=== PATIENT | male | born 1950 | race Caucasian/White ===

== ENCOUNTER 2018-09-21 13:08 | Emergency (ER) | payer BC, MEDICARE, OTHER ==
[2018-09-21 13:39] VITALS: BP 129/81
--- NOTE | 2018-09-21 14:41 | UC ---
Lower Extremity/Ankle HPI - HPI Summary HPI Summary: 67 year old male with PMH + for HTN, presents with left ankle injury after full log, roughly weighing 100lbs fell onto ankle directly, rolled log off with immedate ankle pain. Patient was able to ambulate after, however had increased pain and swelling. Pain located medially. No prior injuries to right leg, h/o fracture to left leg in past. no numbness, tingling. Pain at rest mild, moderate with movements/ ambulation - History of Current Complaint Chief Complaint: UCLowerExtremity Stated Complaint: RT ANKLE/LEG Time Seen by Provider: 09/21/18 13:52 Hx Obtained From: Patient Onset/Duration: Sudden Onset, Lasting Hours - 9AM Severity Initially: Severe Severity Currently: Moderate Pain Intensity: 6 Pain Scale Used: 0-10 Numeric Aggravating Factor(s): Standing, Ambulation Alleviating Factor(s): Rest Able to Bear Weight: Yes - Allergies/Home Medications Allergies/Adverse Reactions: Allergies Allergy/AdvReac Type Severity Reaction Status Date / Time No Known Allergies Allergy Verified 09/21/18 13:39 Home Medications: Home Medications Amlodipine Besylate [Norvasc] 5 mg PO DAILY 09/21/18 [History Confirmed 09/21/18 ] Ibuprofen 400 mg PO ONCE PRN 09/21/18 [History Confirmed 09/21/18] Lisinopril 10 mg PO DAILY 09/21/18 [History Confirmed 09/21/18] PMH/Surg Hx/FS Hx/Imm Hx Previously Healthy: Yes Cardiovascular History: Hypertension - Surgical History Surgical History: None - Social History Alcohol Use: Rare Substance Use Type: None Smoking Status (MU): Never Smoked Tobacco Review of Systems All Other Systems Reviewed And Are Negative: Yes Skin: Positive: Bruising Musculoskeletal: Positive: Arthralgia, Decreased ROM, Edema, Myalgia Is Patient Immunocompromised?: No Physical Exam Triage Information Reviewed: Yes Appearance: Well-Appearing, No Pain Distress, Well-Nourished Vital Signs: Initial Vital Signs Temp 98.6 F 09/21/18 13:28 Pulse 80 09/21/18 13:28 Resp 18 09/21/18 13:28 BP 129/81 09/21/18 13:28 Pulse Ox 97 09/21/18 13:28 Vital Signs Reviewed: Yes Eyes: Positive: Conjunctiva Clear ENT: Positive: Hearing grossly normal Musculoskeletal: Positive: ROM Intact - PROM intact, pain with inversion against resistence, mild pain with plantarflexion., Strength Limited @ - decreased abduction due to pain. full DF/PF, Edema @ - RIGHT leg- lat/ medial mal moderate swelling, no ecchymosis seen. Neurological Exam: Normal Neurological: Positive: Other: - SITLT distal to R ankle Psychological Exam: Normal Skin Exam: Normal Skin: Positive: Other - Skin intact, no breakdown noted. Lower Extremity Course/Dx - Course Course Of Treatment: radiograph- + for fib fracture, mortise widening. Discussed with Ortho, Dr Price, will splint & follow up RAJINDER Falcon. NSAIDS, MYRA Discussed compartment syndrome and s/s of & to go to ER with any symptoms. Pt refused crutches, will get his own, stressed NWB - Differential Dx/Diagnosis Differential Diagnosis/HQI/PQRI: Contusion, Sprain, Tendonitis Provider Diagnosis: Right fibular fracture Discharge - Sign-Out/Discharge Documenting (check all that apply): Patient Departure All imaging exams completed and their final reports reviewed: Yes - Discharge Plan Condition: Fair Disposition: HOME Prescriptions: HYDROcodone/ACETAMIN 5-325 MG* [Central 5-325 TAB*] 1 tab PO Q6H PRN #5 tab MDD 4 PRN Reason: Pain Patient Education Materials: Ankle Fracture (ED), Splint Care (ED) Referrals: Brian Lou MD [Medical Doctor] - (Follow up with orthopedics early next week for re-evaluation/ possible surgery ) Sydni Muhammad MD [Primary Care Provider] - Vannessa Rosa MD [Medical Doctor] - (Follow up with orthopedics early next week for re-evaluation/ possible surgery Your case was discussed with Dr. Rosa at [facility] today. She will be able to see you on marichuy. ) Additional Instructions: - non-weight bearing- Do NOT use your right leg to walk on, put down any weight on until follow up with orthopedics - Ice leg as much as possible to decrease swelling - Do not remove splint or get splint wet - Motrin/ Tylenol as needed for pain, Central as needed for severe pain - Call [facility] associated with any questions/ concerns [phone] - crutches for ambulation - Billing Disposition and Condition Condition: FAIR Disposition: Home
== END 2018-09-21 15:50 | disposition home or self-care (01) ==
LOC: UCEAST 13:08
DX: S82.831A Other fracture of upper and lower end of right fibula, initial encounter for closed fracture (principal); W22.8XXA Striking against or struck by other objects, initial encounter; Y92.9 Unspecified place or not applicable; I10 Essential (primary) hypertension
CPT/HCPCS: 99202; G0463

== ENCOUNTER 2018-10-01 12:35 | Day surgery (SDC) | payer MEDICARE ==
[~2018-10-01 12:35] MED LIST: Buffered Lidocaine 1% SYRIN* 1 ML/SYRINGE INTRADERM ONE; Lactated Ringers 1000 ML Bag* 1,000 ML IV SCH
[2018-10-01] MEDS ORDERED: ceFAZolin 2 GM PREMIX in ORs 2 GM/50 ML BAG ONE (13:31)
[2018-10-01] MEDS ORDERED: Buffered Lidocaine 1% SYRIN* 1 ML/SYRINGE INTRADERM ONE (13:31)
[2018-10-01] MEDS ORDERED: Propofol* 10 MG/ML 20 ML BTL ONE (16:37)
[2018-10-01] MEDS ORDERED: Lidocaine 2% PF * 5 ML VIAL ONE (16:37)
[2018-10-01] MEDS ORDERED: Rocuronium* 10 MG/ML VIAL ONE (16:38)
[2018-10-01] MEDS ORDERED: fentaNYL* 50 MCG/ML 2 ML VIAL (100 MCG VIAL) ONE (16:38)
[2018-10-01] MEDS ORDERED: Midazolam* 1 MG/ML 2 ML VIAL (2 MG) ONE (16:38)
[2018-10-01] MEDS ORDERED: Ropivacaine 0.2% * 2 MG/ML VIAL ONE (17:01)
[2018-10-01] MEDS ORDERED: Dexamethasone IV* 4 MG/ML 1 ML (4 MG) ONE (17:23)
[2018-10-01] MEDS ORDERED: Metoclopramide IV* 5 MG/ML 2 ML VIAL ONE (17:23)
[2018-10-01] MEDS ORDERED: Ondansetron INJ* 2 MG/ML VIAL ONE (17:23)
[2018-10-01] MEDS ORDERED: Ketorolac INJ* 30 MG/ML 1 ML VIAL ONE (17:23)
[2018-10-01] MEDS ORDERED: Acetaminophen TAB* 325 MG PO PRN (17:43)
[2018-10-01] MEDS ORDERED: Naloxone* 0.4 MG/ML 1 ML VIAL IV PRN (17:43)
[2018-10-01] MEDS ORDERED: DiMENhydriNATE IV* 50 MG/ML VIAL IV PUSH PRN (17:43)
[2018-10-01] MEDS ORDERED: EPHEDrine (Pressors)* 50 MG/ML VIAL ONE (17:53)
[2018-10-01] MEDS ORDERED: Sugammadex * 200 MG/2 ML VIAL IV PUSH ONE (18:33)
[2018-10-01] MEDS ORDERED: HYDROmorphone INJ1* 1 MG/ML SYRINGE ONE (19:16)
[2018-10-01] MEDS ORDERED: oxyCODONE TAB* 5 MG TAB ONE (19:16)
[2018-10-01] MEDS: HYDROmorphone INJ1* 1 MG/ML SYRINGE IV PRN ×5 (19:20→19:46)
[2018-10-01] MEDS: oxyCODONE TAB* 5 MG TAB PO PRN ×2 (19:20→19:21)
[2018-10-01 21:15] VITALS: BP 110/66
--- NOTE | 2018-10-02 02:05 | OP ---
CC: PCP, Sydni Muhammad MD * DATE OF OPERATION: 10/01/18 - [facility] DATE OF : 54 SURGEON: Vannessa Rosa MD HOGSHEAD COOPER: GABBY Brice. An anesthesiology physician assistant was needed for the entirety of the case to help with positioning, retraction, and was utilized throughout all portions of the case. ANESTHESIOLOGIST: Dr. Urrutia. ANESTHESIA: General. PRE-OP DIAGNOSIS: Right distal fibula fracture with possible syndesmosis injury. POST-OP DIAGNOSIS: Lateral fibular fracture with syndesmosis disruption. OPERATIVE PROCEDURES: 1. Right open reduction and internal fixation of right distal fibula. 2. Stress views of the syndesmosis. 3. ORIF of syndesmosis. IMPLANTS: Arthrex Titanium system with a TightRope. COMPLICATIONS: None. ESTIMATED BLOOD LOSS: Minimal. TOURNIQUET TIME: 74 minutes at 250 mmHg. DISPOSITION: Stable. INDICATIONS: Campbell Taveras is a 67-year-old male who states that a 200-pound log fell on to his foot on 09/21/18. He was diagnosed with an ankle fracture with some syndesmosis widening. After significant discussion of risks and benefits of surgical versus nonoperative treatment, he has elected to proceed with surgical treatment. Risks include, but are not limited to bleeding, infection, damage to nerves, vessels, surrounding structures, wound nonhealing, persistent pain, need for further surgery, scarring, stiffness, incomplete relief of symptoms, risks of anesthesia, risk of DVT, need for surgery, risk of arthritis, skin healing issues, wound healing issues, risk of blood clots. DESCRIPTION OF PROCEDURE: The patient was greeted in the preoperative area by the attending surgeon. Correct extremity was marked and consent was confirmed. The patient was brought back to the operating suite where he was placed in a supine position on the operating room table and then was appropriately positioned in the bed. A bone foam was placed on the leg and unsterile tourniquet was placed high on the proximal thigh. The right ankle was then prepped and draped in usual sterile fashion beginning with chlorhexidine soap, scrub, and alcohol wipe, and a final prep of ChloraPrep. After appropriate surgical pause indicating side, site, procedure administration of antibiotics, the limb was exsanguinated and tourniquet was inflated to 250 mmHg. A 15 blade was used to make an incision encompassing the distal aspect of the fibula. The soft tissue were dissected to expose the fascia. The fracture was identified, then the edge of the fracture was then debrided back using a 15 blade. The elevator was used to remove the periosteum. The fracture was gapped open and had blood clot and the clot were removed using the rongeur as well as a curette. The wound was then irrigated. At this point, provisional reduction was then done and appeared to be near anatomic. This was secured with reduction clamps, it was checked under the x- ray, confirmed that it was appropriately line up. After this, a lag screw was then placed anterior proximal to inferior distal. This helped to hold and provisionally secure the fixation. Then, a one-third tubular titanium plate was then chosen, a 7-hole plate. The appropriate length screws were then placed proximally and distally with room to pass the syndesmosis. The lag screw had to be reapproximated to allow for syndesmosis fixation without any interference. X-rays were checked and confirmed. At this point the syndesmosis was stressed and there was widening evident. The decision was made to fix this with a tight rope. A wide reduction clamp was then used to free the syndesmosis and with the ankle dorsiflexed, a TightRope drill was then drilled through all 4 cortices and parallel to the joint line and directed 30 degrees anterior. The Arthrex TightRope device was then placed under fluoroscopic visualization and this TightRope failed, therefore a second one was placed, the button still remains medially, but the remainder of the suture and everything else were removed. A second one was placed and this was then cinched down appropriately to close down the syndesmosis. Once it was tightened down, it was then tied with few knots. Final images were obtained with stress views done on the syndesmosis and found to be appropriately reduced. The wounds was copiously irrigated with sterile saline. The fascia was closed with 2-0 Vicryl and skin was closed with 3-0 Monocryl and 3-0 nylon. The wound was injected with 0.2% of ropivacaine. Sterile dressings were applied as well as well-padded plaster splint. The tourniquet was deflated and toes were pink and well perfused. The patient was then awoken from anesthesia and brought from the PACU in stable condition. POSTOPERATIVE PLAN: He will be nonweightbearing. He will be discharged on pain medications. DVT prophylaxis was considered, but deferred due to no previous personal or family history. I will see the patient back in 10 to 14 days with repeat x-rays and hopefully transition to a boot. [id number]/[facility] #: [id number] MTDD
== END 2018-10-01 21:15 | disposition home or self-care (01) ==
LOC: OR 12:35
PROVIDERS: ATTEND Orthopaedic Surgery
DX: S82.61XA Displaced fracture of lateral malleolus of right fibula, initial encounter for closed fracture (principal); W22.8XXA Striking against or struck by other objects, initial encounter; Y93.89 Activity, other specified; Y92.9 Unspecified place or not applicable; I10 Essential (primary) hypertension
CPT/HCPCS: 76000; A9270-GY; C1713; J0690; J1100; J1170; J1885; J2250; J2405; J2704; J2765; J2795; J3010

== ENCOUNTER 2018-10-23 12:40 | Inpatient (IN) | payer MEDICARE ==
[2018-10-23] MEDS ORDERED: NS 0.9% 1000 ML** 1,000 ML IV ONE (12:51)
[2018-10-23] MEDS ORDERED: cefTRIAXone(*) 1 GM in NS 0.9% 50 ML* 50 ML IVPB ONE (12:53)
--- NOTE | 2018-10-23 12:56 | ED ---
GI/ HPI - HPI Summary HPI Summary: 67 year old M brought in by ambulance to [facility] from [facility] with a chief complaint of difficultly urinating since 3 days ago. The patient rates the pain 0/10 in severity. Symptoms aggravated by nothing. Symptoms alleviated by nothing. Patient reports that he has the urge to urinate but has little output. He states that he also feels the urge the have a bowel movement but is constipated. Patient reports an uncomfortable burning at the base of his bladder. He also has fever 101.6 and lethargy. Patient denies hematuria, dysuria , back pain, shortness of breath. Patient had similar symptoms in January 2018 and was diagnosed with prostitis. - History of Current Complaint Time Seen by Provider: 10/23/18 12:45 Stated Complaint: POSSIBLE INFECTION Hx Obtained From: Patient Onset/Duration: Started Days Ago - 3, Still Present Timing: Constant Current Severity: None Associated Signs and Symptoms: Positive: Other: - urge to urinate but has little output, urge the have a bowel movement but is constipated, uncomfortable burning at the base of his bladder, fever 101.6 and lethargy; NEGATIVE: hematuria, dysuria, back pain, shortness of breath Aggravating Factor(s): Nothing Alleviating Factor(s): Nothing - Allergy/Home Medications Allergies/Adverse Reactions: Allergies Allergy/AdvReac Type Severity Reaction Status Date / Time No Known Allergies Allergy Verified 09/27/18 11:25 Home Medications: Home Medications Tamsulosin CAP* [Flomax CAP*] 0.4 mg PO BEDTIME 10/23/18 [History Confirmed 06/12] amLODIPine TAB* [Norvasc 5 mg TAB*] 10 mg PO QAM 10/23/18 [History Confirmed 06/12] PMH/Surg Hx/FS Hx/Imm Hx Previously Healthy: No Cardiovascular History: Reports: Hx Hypertension Sensory History: Reports: Hx Contacts or Glasses - glasses Denies: Hx Hearing Aid Opthamlomology History: Reports: Hx Contacts or Glasses - glasses - Cancer History Hx Chemotherapy: No - Surgical History Surgery Procedure, Year, and Place: R ankle surgery 10/01/18 - Family History Known Family History: Negative: Cardiac Disease, Hypertension, Diabetes - Social History Alcohol Use: Rare Hx Substance Use: No Substance Use Type: Reports: None Hx Tobacco Use: No Smoking Status (MU): Never Smoked Tobacco Review of Systems Positive: Fever, Other - lethargy Negative: Shortness Of Breath Positive: Other - urge the have a bowel movement but is constipated Positive: other - difficulty urinating, urge to urinate but has little output, uncomfortable burning at the base of his bladder. Negative: dysuria, hematuria Musculoskeletal: Negative - back pain All Other Systems Reviewed And Are Negative: Yes Physical Exam - Summary Physical Exam Summary: VITAL SIGNS: Reviewed. GENERAL: Patient is a well-developed and nourished MALE who is lying comfortable in the stretcher. Patient is not in any acute respiratory distress. HEAD AND FACE: No signs of trauma. No ecchymosis, hematomas or skull depressions. No sinus tenderness. EYES: PERRLA, EOMI x 2, No injected conjunctiva, no nystagmus. EARS: Hearing grossly intact. Ear canals and tympanic membranes are within normal limits. MOUTH: Oropharynx within normal limits. NECK: Supple, trachea is midline, no adenopathy, no JVD, no carotid bruit, no c- spine tenderness, neck with full ROM. CHEST: Symmetric, no tenderness at palpation LUNGS: Clear to auscultation bilaterally. No wheezing or crackles. CVS: Regular rate and rhythm, S1 and S2 present, no murmurs or gallops appreciated. ABDOMEN: Soft, non-tender. No signs of distention. No rebound no guarding, and no masses palpated. Bowel sounds are normal. EXTREMITIES: Right ankle has surgical wound which is clear, dry, and intact with a small amount of swelling NEURO: Alert and oriented x 3. No acute neurological deficits. Speech is normal and follows commands. SKIN: Dry and warm. Triage Information Reviewed: Yes Vital Signs Reviewed: Yes Diagnostics - Laboratory Result Diagrams: 10/24/18 06:15 10/24/18 06:15 Lab Statement: Any lab studies that have been ordered have been reviewed, and results considered in the medical decision making process. - Radiology CXR Radiology Interpretation Completed By: Radiologist Summary of Radiographic Findings: NO ACTIVE CARDIOPULMONARY DISEASE. ED physician has reviewed this report. - EKG 1258 Cardiac Rate: NL - 97 BPM EKG Rhythm: Sinus Rhythm Summary of EKG Findings: Sinus rhythm [address] elevations Re-Evaluation - Re-Evaluation First Eval Re-Evaluation Time: 15:52 Comment: patient is agreeable to admission GIGU Course/Dx - Course Assessment/Plan: 67 year old M brought in by ambulance to [facility] from [facility] with a chief complaint of difficulty urinating since 3 days ago. The patient rates the pain 0/10 in severity. Symptoms aggravated by nothing. Symptoms alleviated by nothing. Patient reports that he has the urge to urinate but has little output. He states that he also feels the urge to have a bowel movement but is constipated. Patient reports an uncomfortable burning at the base of his bladder. He also has fever 101.6 and lethargy. Patient denies hematuria, dysuria, back pain, shortness of breath. Patient had similar symptoms in January 2018 and was diagnosed with prostatitis. Blood test results without any significant abnormal except for WBCs of 10.9, sodium 133, chloride 99, glucose 119, total bili 1.3, CRP of 108, urinalysis positive leukocytes antitussive WBCs. The patient has mild urinary retention. He has 200 cc after he urinated however he declined any Kiran catheter. Initially the patient was given IV fluids boluses and Rocephin. The patient also was given Tylenol for the fever. At this point I discussed my physical exam and findings with Dr. Chu from the hospital services for accepting the patient for admission. - Diagnoses Provider Diagnoses: Urinary tract infection - Physician Notifications Discussed Care Of Patient With: Mai Chu Time Discussed With Above Provider: 16:04 Instructed by Provider To: Other - Dr. Chu, hospitalist, agrees to admit patient Discharge - Sign-Out/Discharge Documenting (check all that apply): Patient Departure - Admit Patient Received Moderate/Deep Sedation with Procedure: No - Discharge Plan Condition: Fair Disposition: ADMITTED TO [facility] - Billing Disposition and Condition Condition: FAIR Disposition: Admitted to [facility] - Attestation Statements Document Initiated by Scribe: Yes Documenting Scribe: Rahel Lucio Provider For Whom Roni is Documenting (Include Credential): Emigdio Morton MD Scribe Attestation: Rahel Garcia, scribed for Emigdio Morton MD on 10/24/18 at 2111. Scribe Documentation Reviewed: Yes Provider Attestation: The documentation as recorded by the Rahel fabian accurately reflects the service I personally performed and the decisions made by me, Emigdio Morton MD Status of Scribe Document: Viewed
[2018-10-23 13:39] LABS: ABS Lymphocytes 0.5 10^3/ul (1.0-4.8); ABS Monocytes 1.1 10^3/ul (0-0.8); ABS Neutrophils 9.3 10^3/ul (1.5-7.7); Eosinophil % 0.4 %; Hematocrit 45 % (42-52); Hemoglobin 15.9 g/dL (14.0-18.0); Lymphocyte % 4.6 %; Mean Corpuscular HGB Conc 36 g/dL (31-36); Mean Corpuscular Hemoglobin 32 pg (27-31); Mean Corpuscular Volume 90 fL (80-94); Mean Platelet Volume 8.8 fL (7.4-10.4); Nucleated Red Blood Cells % 0.1; Platelet Count 136 10^3/uL (150-450); Red Blood Count 4.93 10^6 /uL (4.18-5.48); Red Cell Distribution Width 14 % (10-15); White Blood Count 10.9 10^3/uL (3.5-10.8)
[2018-10-23 13:48] LABS: Albumin 4.1 g/dL (3.2-5.2); Albumin/Globulin Ratio 1.6 (1-3); BUN/Creatinine Ratio 26.1 (8-20); C Reactive Protein 108.56 mg/L (<8.01); Calcium 9.2 mg/dL (8.6-10.3); EGFR African American 139.2 (>60); EGFR Non-African American 115.1 (>60); Globulin 2.6 g/dL (2-4); Potassium 3.7 mmol/L (3.5-5.0); Total Bilirubin 1.3 mg/dL (0.2-1.0); Total Protein 6.7 g/dL (6.4-8.9)
[2018-10-23 14:35] LABS: Urine Appearance Cloudy; Urine Bacteria Absent (Absent); Urine Bilirubin Negative (Negative); Urine Blood Negative (Negative); Urine Color Amber; Urine Glucose Negative (Negative); Urine Ketones Negative (Negative); Urine Nitrite Negative (Negative); Urine Protein Negative (Negative); Urine Red Blood Cell Absent (Absent); Urine Specific Gravity 1.018 (1.010-1.030); Urine Squamous Epithelial Cell Present (Absent); Urine Urobilinogen Negative (Negative); Urine White Blood Cell 3+(>20/hpf) (Absent)
[2018-10-23] MEDS ORDERED: NS 0.9% 1000 ML** 2,000 ML IV ONE (15:57)
[2018-10-23] MEDS ORDERED: Acetaminophen TAB* 325 MG PO PRN (16:53)
--- NOTE | 2018-10-23 18:35 | HP ---
CC: Dr. Muhammad; Dr. Rosa * HISTORY AND PHYSICAL: DATE OF ADMISSION: 10/23/18 PROVIDER: Nuvia Bonds NP. PRIMARY CARE PROVIDER: Dr. Muhammad. ATTENDING PHYSICIAN WHILE IN THE HOSPITAL: Dr. Mai Chu * (dictated by Nuvia Bonds NP). CHIEF COMPLAINT: Fever and fatigue. HISTORY OF PRESENT ILLNESS: Mr. Taveras is a 67-year-old gentleman with a past medical history significant for hypertension and BPH, who presented to the emergency room from Dr. Rosa's office with fever and fatigue. The patient reports he was seen at Dr. Rosa's office for a routine followup status post ORIF of his right ankle for a fibula fracture on 10/01/18. The patient reports that this has been healing well. There has been no drainage. No increased pain , redness, or swelling to the right ankle. While in the office today, he had his temperature taken and reports that he had a temp of 101.6 in the office and appeared to be pale. So, Dr. Rosa recommended that the patient come to the emergency room for further evaluation. The patient reports that he has had burning, frequency, urgency, and pain with urination since last . He also reports he has had increased fatigue since last . He reports that fever started today. He reports that over the past couple days he has had decreased urine output, but increased pain , urgency, and frequency. He does report that he has increased pain with the start of urination. The patient denies any unintended weight loss. Denies any chest pain or edema. No cough, hemoptysis, or shortness of breath. No nausea, vomiting, diarrhea. He does report some lower abdominal pain. No hematuria. He does report urinary frequency, urgency, and decreased urinary output. No sensory loss. Denies any visual complaints, dysphagia, arthralgias, myalgias, rashes, lesions , or opens sores. He does have a healing surgical incision noted to his right ankle. There is no drainage or surrounding erythema. Denies any psychosis or anxiety. While in the emergency room, he had routine lab work drawn. He was found to have a fever, T-max was 101.4. He was tachycardic at 96 and tachypneic with respirations of 23, meeting sepsis criteria with temperature, tachycardia, and tachypnea and suspected source of a UTI. Due to the findings, we were asked to see and evaluate the patient for admission. PAST MEDICAL HISTORY: Significant for hypertension, BPH. PAST SURGICAL HISTORY: Right ankle ORIF for right fibula fracture. HOME MEDICATIONS: Include: 1. Amlodipine 5 mg p.o. daily. 2. Lisinopril/hydrochlorothiazide 20/25 one tablet p.o. daily. 3. Vitamin B12 at 25 mcg p.o. daily. 4. Flomax 0.4 mg p.o. at bedtime. 5. Naproxen 440 mg p.o. at bedtime. ALLERGIES: No known drug allergies. FAMILY HISTORY: Unknown as the patient is adopted. SOCIAL HISTORY: The patient denies any tobacco use. He does report rare alcohol use. Denies any illicit drug use. He is . He lives with his . Surrogate decision maker in the event he is unable to make his own decisions is daughter, Monique. He is a DNR. MOLST form was signed and placed on the chart. REVIEW OF SYSTEMS: An 11-point review of systems was completed. All pertinent positives were mentioned in the HPI. Otherwise were negative. PHYSICAL EXAMINATION GENERAL: At this time, Mr. Taveras is a 67-year-old male. He is alert and oriented, resting on the stretcher in the emergency room. He is in no acute distress. VITAL SIGNS: Temperature 101.4, heart rate was 87, respirations are 14, O2 saturation 98%, blood pressure 115/64, peak heart rate was 97. HEENT: Head is atraumatic, normocephalic. Eyes: EOMs are intact. Sclerae anicteric and not pale. Oral mucosa appeared to be moist. NECK: Supple. LUNGS: Clear to auscultation bilaterally. No wheezes, rales, or rhonchi. CARDIAC: S1, S2. Regular rate and rhythm. No murmurs, rubs, or gallops. ABDOMEN: Soft and nontender. Bowel sounds are present x4. He does not have any CVA tenderness with palpation. MUSCULOSKELETAL: He can move all 4 extremities with 5/5 strength. There is no clubbing or cyanosis. Skin is intact. He does have a healing surgical incision noted to the medial aspect of his right ankle. There is no drainage, erythema. Incision line is well approximated. There is mild swelling. The patient does have range of motion. NEUROLOGIC: He is awake, alert, oriented x3. Speech is clear. Thought process is intact. There are no gross focal deficits. DIAGNOSTIC STUDIES/LAB DATA: WBCs are 10.9, RBCs 4.93, hemoglobin 15.9, hematocrit 45, platelet count 136. Sodium 133, potassium 3.7, chloride 99, carbon dioxide was 26, anion gap 8, BUN 18, creatinine 0.69, glucose 119, lactic acid 0.8, calcium 9.2. Total bilirubin is 1.30, ASTs were 15, ALTs were 15, alkaline phosphatase was 118. C-reactive protein 108.56. Urine was within normal limits with the exception of leukocyte esterase was 3+, wbc's were 3+, rbc's were absent, squamous epithelial cells were present, bacteria was absent. He had a chest x-ray, radiologist's impression: No active cardiopulmonary disease. He had an electrocardiogram, which showed sinus rhythm at a rate of 97. ASSESSMENT AND PLAN: Mr. Taveras is a 67-year-old male with past medical history significant for hypertension and benign prostatic hypertrophy, who presented to the emergency room from Dr. Rosa's office for evaluation of fever and urinary symptoms. He will be admitted inpatient for: 1. Fever. I suspect his fever could be related to underlying urinary tract infection as the patient clinically has symptoms of urinary tract infection with pain, frequency, urgency, and burning with urination. I will place him on ceftriaxone 1 g IV q.24 hours. The patient is febrile with a fever of 101.4 T- max, tachycardia with a heart rate of 96, and tachypnea with respirations at 23. Given this, the patient does meet sepsis criteria with tachycardia, tachypnea, and fever of 101.4 with a suspected source of a urinary tract infection. Blood cultures are currently pending. Urine culture is currently pending. If blood cultures come back positive, evaluation of the patient's recent right ankle ORIF with plates and screws would be a consideration to review, at this time the Ankle incision is well approximated without redness or drainage. Patient denies pain. There is mild swelling but is to be expected post -operatively. 2. Hypertension. At this time, I am going to hold his amlodipine and hydrochlorothiazide in the setting of sepsis. We will resume these medications after his sepsis resolves. 3. FEN: He can have a regular diet. 4. Code status: He is a DNR. 5. DVT prophylaxis: I will place him on Lovenox subcu. 6. Disposition: The patient will be placed on the medical floor. TIME SPENT: Time spent on this admission was approximately 60 minutes, greater than half that time was spent at the bedside reviewing the events leading thus far to his hospitalization, performing physical exam, and reviewing my plan of care. I have discussed this with my attending Dr. Mai Chu; she is in agreement with my plan. NUVIA BONDS, DIRECTIONAL DRILL OPERATOR [id number]/[facility] #: [id number] Addendum: I did speak to Dr. Rosa, who saw the patient in the office today, reports that the patient looked poorly in the office was tachycardia and hypoxic with o2 saturation of 89%, she was concerned about PE. Will order D- dimer and CTA of the chest as the patient does score a 3 on Wells criteria. Also discussed possibility of symptoms being related to his recent right ankle surgery and possibility of infection. The patient does not have any pain in the ankle, mild swelling. incision line is well approximated without drainage, there is slight warmth. If the patient develops increased pain or increased swelling in the right ankle she will be available to see the patient tomorrow. VIDA
[2018-10-23] MEDS: Enoxaparin(*) 40 MG/0.4 ML SYR SUBCUT SCH (19:20)
[2018-10-23] MEDS: NS 0.9% 1000 ML** 1,000 ML IV SCH (19:39)
[2018-10-23] MEDS ORDERED: Tamsulosin CAP* 0.4 MG PO SCH (21:00)
[2018-10-24] MEDS ORDERED: Iohexol 350* (CONTRAST) 500 ML MDV IV ONE (00:40)
[2018-10-24] MEDS ORDERED: Azithromycin 500 mg/250 ml NS 500 MG/250 ML BAG IVPB SCH (03:00)
[2018-10-24 06:27] LABS: ABS Eosinophils 0.1 10^3/ul (0-0.6); ABS Lymphocytes 0.6 10^3/ul (1.0-4.8); ABS Monocytes 0.9 10^3/ul (0-0.8); ABS Neutrophils 6.1 10^3/ul (1.5-7.7); Eosinophil % 1.1 %; Hematocrit 37 % (42-52); Hemoglobin 13.5 g/dL (14.0-18.0); Lymphocyte % 8.4 %; Mean Corpuscular HGB Conc 36 g/dL (31-36); Mean Corpuscular Hemoglobin 33 pg (27-31); Mean Corpuscular Volume 90 fL (80-94); Mean Platelet Volume 8.5 fL (7.4-10.4); Platelet Count 117 10^3/uL (150-450); Red Blood Count 4.12 10^6 /uL (4.18-5.48); Red Cell Distribution Width 14 % (10-15); White Blood Count 7.7 10^3/uL (3.5-10.8)
[2018-10-24 06:39] LABS: BUN/Creatinine Ratio 17.6 (8-20); Calcium 8.5 mg/dL (8.6-10.3); EGFR African American 141.6 (>60); Potassium 3.6 mmol/L (3.5-5.0)
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
[2018-10-24] MEDS: NS 0.9% 1000 ML** 1,000 ML IV SCH (11:05)
[2018-10-24] MEDS ORDERED: cefTRIAXone(*) 1 GM in NS 0.9% 50 ML* 50 ML IVPB SCH (14:00)
--- NOTE | 2018-10-24 15:41 | PN ---
Subjective Date of Service: 10/24/18 Interval History: Pt stated that he has had problems with urination for "years", has never seen a urologist. Post void residual>400 ml-pt refuses Kiran Denies cough Objective Active Medications: Acetaminophen (Tylenol Tab*) 650 mg PO Q4H PRN PRN Reason: FEVER/PAIN Cyanocobalamin (Vitamin B12 Tab*) 2,500 mcg PO QAM [facility] Enoxaparin Sodium (Lovenox(*)) 40 mg SUBCUT Q24H [facility] Last Admin: 10/23/18 19:20 Dose: Not Given Sodium Chloride (Ns 0.9% 1000 Ml) 1,000 mls @ 75 mls/hr IV PER RATE [facility] Last Admin: 10/24/18 11:05 Dose: 75 mls/hr Ceftriaxone Sodium 1 gm/ (Sodium Chloride) 50 mls @ 200 mls/hr IVPB Q24H [facility] Last Admin: 10/24/18 14:47 Dose: 200 mls/hr Azithromycin (Zithromax 500 Mg/250 Ml) 500 mg in 250 mls @ 250 mls/hr IVPB Q24H [facility] Last Admin: 10/24/18 03:54 Dose: 250 mls/hr Tamsulosin HCl (Flomax Cap*) 0.4 mg PO BEDTIME [facility] Last Admin: 10/23/18 22:13 Dose: 0.4 mg Oxygen Devices in Use Now: None Appearance: 67 yo m in nAD, AAOx3 Eyes: No Scleral Icterus, PERRLA Ears/Nose/Mouth/Throat: NL Teeth, Lips, Gums, Mucous Membranes Moist Neck: NL Appearance and Movements; NL JVP, Trachea Midline Respiratory: Symmetrical Chest Expansion and Respiratory Effort, Clear to Auscultation Cardiovascular: NL Sounds; No Murmurs; No JVD, RRR Abdominal: NL Sounds; No Tenderness; No Distention Lymphatic: No Cervical Adenopathy Extremities: No Edema, No Clubbing, Cyanosis, - - R ankle surgical dressings not removed Skin: No Nodules or Sclerosis Neurological: Alert and Oriented x 3, NL Muscle Strength and Tone Result Diagrams: 10/24/18 06:15 10/24/18 06:15 Microbiology and Other Data: Microbiology 10/23/18 13:07 Urine Culture - Preliminary Urine Staphylococcus Epidermidis 10/23/18 13:06 Aerobic Blood Culture - Preliminary Blood Venous No Growth Day 1 10/23/18 13:07 Aerobic Blood Culture - Preliminary Blood Venous No Growth Day 1 Anaerobic Blood Culture - Preliminary No Growth Day 1 Assess/Plan/Problems-Billing Assessment: 67 yo M with h/o BPH, s/p r ankle ORIF 10/01/[address] Rosa was noted to have fever when seeing ortho for post op eval in office and sent to [facility] for [place] - Patient Problems (1) Sepsis Comment: due to UTI Although CT shows poss. pneumonitis of upper lungs, pt is asymptomatic from resp standpoint cont Ceftriaxone still low SBP and tachy, will cont IVF and monitor x one more day (2) Urinary retention Comment: pt refuses Kiran, states that symptoms had been ongoing for many years. will increase tamsulosin dose Recommended urology consult as outpatient (3) Status post ORIF of fracture of ankle Comment: Pt was evaluated by Dr. Rosa today-no evidence of infection (4) Splenomegaly Comment: curbsided oncologyemelyn incidental finding. Can be evaluated with our onc group as outpatient in 4-6 weeks (5) DVT prophylaxis Comment: lovenox Status and Disposition: inpatient, planned d/c tomorrow
[2018-10-24] MEDS: Enoxaparin(*) 40 MG/0.4 ML SYR SUBCUT SCH (17:39)
[2018-10-24] MEDS ORDERED: Tamsulosin CAP* 0.4 MG PO SCH (21:00)
[2018-10-25] MEDS: NS 0.9% 1000 ML** 1,000 ML IV SCH (00:29)
[2018-10-25 06:09] LABS: ABS Eosinophils 0.1 10^3/ul (0-0.6); ABS Lymphocytes 0.5 10^3/ul (1.0-4.8); ABS Monocytes 0.7 10^3/ul (0-0.8); ABS Neutrophils 4.1 10^3/ul (1.5-7.7); Eosinophil % 1.8 %; Hematocrit 36 % (42-52); Lymphocyte % 9.4 %; Mean Corpuscular HGB Conc 36 g/dL (31-36); Mean Corpuscular Hemoglobin 33 pg (27-31); Mean Corpuscular Volume 90 fL (80-94); Mean Platelet Volume 8.6 fL (7.4-10.4); Platelet Count 115 10^3/uL (150-450); Red Blood Count 3.96 10^6 /uL (4.18-5.48); Red Cell Distribution Width 14 % (10-15); White Blood Count 5.4 10^3/uL (3.5-10.8)
[2018-10-25 06:21] LABS: BUN/Creatinine Ratio 14.5 (8-20); Calcium 8.4 mg/dL (8.6-10.3); EGFR African American 157.5 (>60); EGFR Non-African American 130.2 (>60); Potassium 3.6 mmol/L (3.5-5.0)
[2018-10-25 08:30] VITALS: BP 129/72
[2018-10-25] MEDS: Cyanocobalamin TAB* 500 MCG PO SCH ×3 (08:54→09:44)
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
== END 2018-10-25 11:40 | disposition home or self-care (01) | DRG 871 ==
LOC: ED 12:40 → MED 16:53
PROVIDERS: ADMIT Internal Medicine; ATTEND Internal Medicine
DX: A41.9 Sepsis, unspecified organism (principal); J18.9 Pneumonia, unspecified organism; N41.9 Inflammatory disease of prostate, unspecified; R16.1 Splenomegaly, not elsewhere classified; R35.0 Frequency of micturition; I10 Essential (primary) hypertension; N40.1 Benign prostatic hyperplasia with lower urinary tract symptoms; Z66 Do not resuscitate; R33.9 Retention of urine, unspecified; K59.00 Constipation, unspecified
CPT/HCPCS: 36415; 71045; 71275; 80048; 80053; 81003; 81015; 83605; 83690; 84153; 85025; 85379; 86140; 87040; 87077; 87086; 87186; 93005; 99284; A9270-GY; G0103; J0456; J0696; J1650; Q9967

== ENCOUNTER 2019-10-07 11:42 | Observation (INO) ==
[~2019-10-07 11:42] MED LIST changes: -Buffered Lidocaine 1% SYRIN* 1 ML/SYRINGE INTRADERM ONE; -Lactated Ringers 1000 ML Bag* 1,000 ML IV SCH; +Lactated Ringers 1000 ml BAG 1,000 ML IV SCH
[2019-10-07] MEDS ORDERED: cefTRIAXone(*) 2 GM ADDV.VIAL ONE (11:45)
[2019-10-07] MEDS ORDERED: HYDROmorphone 1 MG/1 ML SYRINGE IV PRN (12:31)
[2019-10-07] MEDS ORDERED: Naloxone 0.4 mg VIAL 0.4 mg/ml 1 ml VIAL IV PRN (12:31)
[2019-10-07] MEDS ORDERED: Ondansetron 4 mg VIAL 2 MG/ML 2 ml VIAL ONE (12:32)
[2019-10-07] MEDS ORDERED: fentaNYL 100 mcg/2 ml 50 MCG/ML VIAL ONE (12:32)
[2019-10-07] MEDS ORDERED: Propofol 10 MG/ML 20 ML BTL ONE (12:32)
[2019-10-07] MEDS ORDERED: Lidocaine 2% PF 5 ML VIAL ONE (12:32)
[2019-10-07] MEDS ORDERED: Midazolam 2 mg/2 ml VIAL 1 mg/ml 2 ml VIAL (2 mg) ONE (13:12)
[2019-10-07] MEDS ORDERED: Iohexol 180 (CONTRAST) 10 ML SDV IV ONE (13:47)
[2019-10-07] MEDS ORDERED: Phenylephrine 40 mcg/mL 10mL (400mcg) SYRINGE ONE ×2 (14:11→14:33)
[2019-10-07] MEDS ORDERED: EPHEDrine (Pressors) 50 MG/ML VIAL ONE (14:25)
[2019-10-07] MEDS: NS 0.9% 1000 ml BAG 1,000 ML IV SCH ×2 (17:10→23:51)
[2019-10-07] MEDS ORDERED: oxyCODONE/Acetamin 5/325 mg TAB PO PRN (18:30)
[2019-10-08] MEDS: NS 0.9% 1000 ml BAG 1,000 ML IV SCH (06:29)
[2019-10-08] MEDS ORDERED: cefTRIAXone 1 gm/50 mL NS BAG 1 GM/50 ML BAG IVPB ONE (07:00)
[2019-10-08 07:33] VITALS: BP 111/66
== END 2019-10-08 11:05 | disposition home or self-care (01) ==
LOC: SSU 11:42 → OR 11:42
PROVIDERS: ADMIT Urology; ATTEND Urology